=== PATIENT | male | born 1980 | race Caucasian/White ===

== ENCOUNTER 2018-06-12 00:38 | Emergency (ER) | payer MEDICAID ==
[~2018-06-12] VITALS: Ht 170.2 cm; Wt 68.9 kg
[2018-06-12 00:57] VITALS: Ht 170.2 cm; Wt 68.9 kg
[2018-06-12 03:59] VITALS: BP 132/69
== END 2018-06-12 04:00 | disposition home or self-care (01) ==
LOC: ED 00:38
DX: S51.812D Laceration without foreign body of left forearm, subsequent encounter (principal); X58.XXXD Exposure to other specified factors, subsequent encounter